=== PATIENT | male | born 1970 | race Caucasian/White ===

== ENCOUNTER 2019-03-04 10:12 | Emergency (ER) | payer MEDICAID ==
[~2019-03-04] VITALS: Ht 165.1 cm; Wt 28.0 kg
[~2019-03-04 10:12] MED LIST: CLON-528 PO; PHEN32.46 PO
[2019-03-04] MEDS ORDERED: ondansetron/PF 4mg/2ml inj IV ONE ×2 (11:00→12:35)
[2019-03-04] MEDS ORDERED: normal saline 1000ML IV soln IVB ONE (11:00)
[2019-03-04] MEDS ORDERED: fentaNYL/PF 50MCG/1 ML 2ML syringe IV ONE ×2 (11:00→12:30)
[2019-03-04] MEDS ORDERED: etomidate 2mg/ml inj. ONE (12:00)
[2019-03-04] MEDS ORDERED: sodium bicarbonate (8.4%) 1 mEq/ml syringe ONE (12:00)
[2019-03-04] MEDS ORDERED: epiNEPHrine 0.1mg/ml 10ml syringe ONE (12:00)
[2019-03-04] MEDS ORDERED: sod chloride 0.9% 10ml flush syringe IV ONE (12:00)
[2019-03-04 12:18] LABS: CLARITY,URINE CLEAR (Clear); COLOR,URINE YELLOW (Yellow); GLUCOSE, URINE NEGATIVE (Neg); KETONES,URINE TRACE mg/dl (Neg); LEUKOCYTE ESTERASE ,URINE NEGATIVE (Neg); NITRITES, URINE NEGATIVE (Neg); OCCULT BLOOD,URINE NEGATIVE (Neg); PROTEIN,URINE 30 mg/dl (Neg); UROBILINOGEN,URINE 0.2 E.U/dL (0.2-1.0)
[2019-03-04 12:19] LABS: UA COLLECTION TYPE STRAIGHT CATH
[2019-03-04] MEDS ORDERED: normal saline 1000ML IV soln IV ONE (12:35)
[2019-03-04] MEDS ORDERED: piperacillin/tazo 3.375gm/50ml 50 ML IV ONE (12:35)
[2019-03-04 12:42] LABS: HYALINE CASTS 0-3 /LPF (NEGATIVE); MUCUS STRANDS MANY /LPF (Neg); RENAL CELLS, URINE MANY /HPF; SQUAMOUS EPITHELIAL CELL,UR FEW /LPF (FEW)
[2019-03-04 12:44] LABS: BACTERIA,URINE 1+ /HPF (Neg); RBC,URINE 0-2 /HPF (0-2)
[2019-03-04 12:45] LABS: TRANSITIONAL EPI CELLS,URINE FEW /HPF
--- NOTE | 2019-03-04 13:33 | NUR ---
ALTA ROSARIO NOTIFIED OF PT'S SUDDEN DESATURATION WHILE ON NASAL CANNULA TO 75% SPO2. 15L NON-REBREATHER MASK PLACED ON PT AT THIS TIME. SPO2 INCREASED TO 100% WITH MASK IN PLACE.
[2019-03-04] MEDS ORDERED: succinylcholine 20mg/ml inj IV ONE (13:40)
[2019-03-04] MEDS ORDERED: etomidate 2mg/ml inj. IV ONE (13:40)
[2019-03-04] MEDS ORDERED: propofol 1000mg/100ml bottle 100 ML IV PRN (13:40)
[2019-03-04] MEDS ORDERED: ketamine 50mg/5ml syringe IV ONE (14:00)
[2019-03-04] MEDS ORDERED: rocuronium bromide 100mg/10ml (10mg/ml) injection IV ONE (14:00)
--- NOTE | 2019-03-04 14:00 | NUR ---
PT TRANSPORTED TO BED 04 DUE TO INABILITY TO PROTECT AIRWAY AND FOR NEEDED INTUBATION. ALTA ROSARIO AND MD CHARLES AWARE AND AT BEDSIDE.
[2019-03-04 14:02] LABS: BASOPHILS % (AUTO) 0.1 % (0-1); EOSINOPHILS % (AUTO) 0.3 % (0-6); HEMATOCRIT 42.2 % (42.0-52.0); LYMPHOCYTES # (AUTO) 0.5 X10'3 (1.1-4.8); LYMPHOCYTES % (AUTO) 14.4 % (21-51); MEAN CORPUSCULAR HEMOGLOBIN 31.8 PG (27.0-31.0); MEAN CORPUSCULAR HGB CONC 33.2 g/dL (33.0-36.5); MEAN CORPUSCULAR VOLUME 95.6 FL (78-98); MEAN PLATELET VOLUME 7.6 FL (7.4-10.4); MONOCYTES # (AUTO) 0.2 X10'3 (0-0.9); MONOCYTES % (AUTO) 6.2 % (2-12); NEUTROPHILS # (AUTO) 2.6 X10'3 (1.8-7.7); PLATELET COUNT 244 X10'3 (140-440); RED BLOOD COUNT 4.41 X10'6 (4.70-6.10); RED CELL DISTRIBUTION WIDTH 14.2 % (11.5-14.5); WHITE BLOOD COUNT 3.3 X10'3 (4.5-11.0)
[2019-03-04 14:12] VITALS: BP 84/52
[2019-03-04] MEDS ORDERED: PHEN32.46 PO (14:15)
[2019-03-04] MEDS ORDERED: CLON0.5T23 PO (14:15)
--- NOTE | 2019-03-04 14:15 | NUR ---
PT INTUBATED BY MD CHARLES, 56MG KETAMINE GIVEN PRIOR TO INTUBATION
--- NOTE | 2019-03-04 14:16 | NUR ---
CODE INITIATED BY MD MOTTA, 1MG EPINEPHRINE GIVEN AT 1417 AND 1420. 50MEQ BICARB GIVEN AT 1422. TIME OF 1425.
[2019-03-04] MEDS ORDERED: TRAZ-251 PO (14:21)
[2019-03-04] MEDS ORDERED: TRAM50TA2 PO (14:21)
[2019-03-04] MEDS ORDERED: POLY17PO10 PO (14:21)
[2019-03-04] MEDS ORDERED: CHOL400T PO (14:21)
--- NOTE | 2019-03-04 14:25 | NUR ---
TIME OF 1425 PRONOUNCED BY . CPR/CODE FOR 9 MINS. PT IN [place] NO PULSE FOR 9 MINS. FAMILY STANDING BY AND NOTIFIED BY ALTA KAYE.
[2019-03-04 14:32] LABS: ALANINE AMINOTRANSFERASE 23 U/L (12-78); ALBUMIN 2.4 G/DL (3.4-5.0); ALKALINE PHOSPHATASE 75 IU/L (46-116); ANION GAP 13 (8-16); ASPARTATE AMINO TRANSFERASE 28 U/L (10-37); BILIRUBIN,TOTAL 0.3 MG/DL (0.1-1.0); BLOOD UREA NITROGEN 19 MG/DL (7-18); BUN/CREATININE RATIO 19.8 (5.4-32.0); CALCIUM 6.7 MG/DL (8.5-10.1); CHLORIDE 114 MMOL/L (99-107); CREATININE 0.96 MG/DL (0.60-1.10); GLUCOSE 103 MG/DL (70-104); POTASSIUM 3.9 MMOL/L (3.5-5.1); SODIUM 149 MMOL/L (135-145); TOTAL CARBON DIOXIDE 21.7 MMOL/L (24-32); TOTAL PROTEIN 4.8 G/DL (6.4-8.2); eGFR 84 ML/MIN
--- NOTE | 2019-03-04 15:30 | NUR ---
STACK SUPERVISOR NOTIFIED AT 1449 OF PT'S . STACK SUPERVISOR REVIEWED PT'S INFORMATION AND GAVE PERMISSION TO RELEASE PT AT 1525. REVIEWING OFFICER WAS SABIHA DALLAS [phone]. [employer] NOTIFIED AT 1500 OF PT'S . [employer]WORK REPORTED THAT PT IS A CANDIDATE FOR [facility]. [employer]WORK GIVEN PT'S NEXT OF KIN INFORMATION. PT'S MOTHER NOTIFIED THAT [employer] WILL CALL HER. [employer] TECH WAS EDU, REFERENCE NUMBER [phone].
--- NOTE | 2019-03-04 16:20 | NUR ---
CALLED [facility] AND [facility]ELINE HERNAN[facility] TO NOTIFY THAT FAMILY SELECTED THEIR FACILITY MORTUARY. 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
== END 2019-03-04 16:53 | disposition expired ==
LOC: ER 10:13
DX: I46.9 Cardiac arrest, cause unspecified (principal); A41.9 Sepsis, unspecified organism; K56.699 Other intestinal obstruction unspecified as to partial versus complete obstruction; K40.90 Unilateral inguinal hernia, without obstruction or gangrene, not specified as recurrent; G80.1 Spastic diplegic cerebral palsy; Z88.6 Allergy status to analgesic agent; Z88.5 Allergy status to narcotic agent; Z79.899 Other long term (current) drug therapy
CPT/HCPCS: 31500; 36415; 71045; 74176; 80053; 81001; 83605; 84145; 85025; 85610; 87040; 87088; 92950; 96365; 96375; 96376; 99291; J0171; J2405; J2543; J3010; J7030